=== PATIENT | female | born 1985 | race Caucasian/White ===

== ENCOUNTER 2017-10-03 12:58 | Emergency (ER) | payer OTHER ==
[~2017-10-03] VITALS: Ht 177.8 cm; Wt 127.0 kg
[~2017-10-03 12:58] MED LIST: FLEXERIL10 MG PO; HYDROXYZINE50 MG PO; JUNEL FE 1/20 21 TAB PO; NAPROXEN500 MG PO; TRIAMCINOL0.1 %/453 TOP; ZITHROMAX Z-PA250 MG PO
[2017-10-03 13:02] VITALS: BP 167/120
== END 2017-10-03 14:27 | disposition admitted as inpatient to this hospital (09) ==
LOC: ERH 12:58
DX: H57.12 Ocular pain, left eye (principal)

== ENCOUNTER 2017-11-03 19:46 | Emergency (ER) | payer OTHER ==
[~2017-11-03] VITALS: Ht 177.8 cm; Wt 127.0 kg
--- NOTE | 2017-11-03 20:49 | RADIOLOGY REPORT ---
EXAMINATION: XR CHEST CLINICAL INFORMATION: Productive cough. Fever. COMPARISON: None TECHNIQUE: 2 views of the chest were obtained. FINDINGS: No significant abnormality is noted involving the heart, lungs, mediastinum, bony thorax or soft tissues. IMPRESSION: Unremarkable examination.
--- NOTE | 2017-11-03 23:38 | ED INFLUENZA/URI COMPLAINT ---
History of Present Illness General Chief Complaint: Upper Respiratory Sx/Fever Stated Complaint: COUGH,VOMITING, SORE THROAT Source: patient Exam Limitations: no limitations Vital Signs & Intake/Output Vital Signs & Intake/Output Vital Signs Date Time Temp Pulse Resp B/P B/P Pulse O2 O2 Flow FiO2 Mean Ox Delivery Rate 11/04 0041 72 20 172/80 97 Room Air / 0018 98.1 11/04 0018 98.1 11/04 0017 98.1 86 20 167/96 96 Room Air 11/04 0014 96 Room Air / 0002 80 18 158/103 98 Room Air / 0000 76 170/122 11/03 2359 75 18 161/102 97 Room Air 11/03 2335 76 18 170/122 97 Room Air / 2309 98.9 87 20 158/92 97 Room Air 11/03 2029 101.5 11/03 2029 101.5 11/03 2029 110 177/133 11/03 2014 101.5 110 20 177/133 97 Room Air ED Intake and Output 11/04 0000 11/03 1200 Intake Total 120 Output Total Balance 120 Intake, Oral 120 Patient 280 lb Weight Weight Reported by Patient Measurement Method Allergies Coded Allergies: Penicillins (UNKNOWN 11/03/17) Reconcile Medications Azithromycin (Zithromax Z-Ok) 250 MG TAB 1 PAC PO DAILY INFECTION USE DIRECTED Benzonatate 100 MG CAPSULE 1-2 CAP PO Q4 COLD SYMPTOMS (Reported) Codeine Phosphate/Guaifenesi (Cheratussin AC Syrup) 10 MG-100 MG/5 ML LIQUID 10 ML PO Q6H PRN COUGH CYCLOBENZAPRINE HCL (Flexeril) 10 MG TAB 1 TAB PO TID PRN PAIN Doxycycline Hyclate 100 MG TABLET 1 TAB PO BID SINUSITIS Fluticasone Propionate (Flonase Allergy Relief) 50 MCG/ACTUATION SPRAY.SUSP 2 SPRAY NASB ONCE DAILY PRN CONGESTION Naproxen 500 MG TAB 1 TAB PO BID PAIN Norethindrone AC-Eth Estradiol (Loestrin 21 1.5-30 Tablet) 1.5 MG-30 MCG TABLET 1 TAB PO DAILY CONTROL (Reported) NORETHINDRONE-E.ESTRADIOL-IRON (Junel Fe 1 MG-20 Mcg Tablet) 1 MG-20 MCG (21)/75 MG (7) TABLET 1 TAB PO DAILY BC (Reported) Triage Note: 32F REPORTS SICK SINCE THURSDAY, WENT TO WALK IN AND DIAGNOSED VIRAL INFX BUT EVEN WORSE TODAY. REPORTS GENERALIZED ACHES, THROAT PAIN, N/V, DENIES FEVERS BUT TEMP 101.5 IN TRIAGE Triage Nurses Notes Reviewed? yes Onset: Abrupt Duration: day(s): (2-3), constant, continues in ED, getting worse Timing: single episode today Severity: mild, moderate Severity Numbers: 7 Prior Episodes/Possible Cause: no prior episodes No Modifying Factors: none Associated Symptoms: cough, headache, muscle aches, nasal congestion, nasal drainage, shortness of breath, sore throat LMP (ages 10-50): unknown : No Patient currently breastfeeds: No HPI: 32-year-old female with no past medical history presents for evaluation of cough , congestion, rhinorrhea fever and body aches. Patient states symptoms started several days ago beEN getting worse. Patient states cough is productive of yellow sputum worsened night causing difficulty sleeping. She was seen at an urgent care several days ago diagnosed with a viral infection but symptoms are getting worse. She spiked a fever today. She's been taking Tessalon Perles without improvement. No nausea vomiting diarrhea no chest pain or shortness of breath. No hemoptysis or lower extremity edema. (Berry Roberson) Past History Travel History Traveled to [place] past 21 day No Medical History Any Pertinent Medical History? see below for history Neurological: NONE EENT: NONE Cardiovascular: NONE Respiratory: NONE Gastrointestinal: NONE Hepatic: NONE Renal: NONE Musculoskeletal: NONE Psychiatric: NONE Endocrine: NONE Blood Disorders: NONE Cancer(s): NONE Tetanus Vaccine: 03/25/16 Surgical History Surgical History: non-contributory Psychosocial History What is your primary language Greenlandic Tobacco Use: Never used Family History Hx Contributory? No (Berry Roberson) Review of Systems Review of Systems Constitutional: Reports: chills, diaphoresis, fever. EENTM: Reports: nasal congestion, nasal pain. Respiratory: Reports: see HPI, cough, sputum production. Cardiovascular: Reports: no symptoms. GI: Reports: no symptoms. Genitourinary: Reports: no symptoms. Musculoskeletal: Reports: no symptoms. Skin: Reports: no symptoms. Neurological/Psychological: Reports: no symptoms. Hematologic/Endocrine: Reports: no symptoms. Immunologic/Allergic: Reports: no symptoms. All Other Systems: Reviewed and Negative (Black PA,Berry) Physical Exam Physical Exam General Appearance: well developed/nourished, no apparent distress, alert, awake Head: atraumatic, normal appearance Eyes: Bilateral: normal appearance, PERRL, EOMI. Ears, Nose, Throat: moist mucous membrane, hearing grossly normal, Tympanic normal, pharynx normal, nasal congestion, nasal drainage (CLEAR), MAXILLARY SINUS TENDERNESS PALPATION BILATERALLY Neck: normal inspection, supple, full range of motion Respiratory: normal breath sounds, chest non-tender, no respiratory distress, lungs clear Cardiovascular: regular rate/rhythm, normal peripheral pulses Peripheral Pulses: 2+ radial (R), 2+ radial (L) Gastrointestinal: normal bowel sounds, soft, non-tender, no organomegaly Back: normal inspection, normal range of motion, no vertebral tenderness Extremities: normal inspection, normal range of motion, no edema Neurologic/Psych: no motor/sensory deficits, awake, alert, oriented x 3, normal gait Skin: intact, normal color, warm/dry Lymphatic: no anterior cervical fatimah Core Measures Sepsis Present: No Sepsis Focused Exam Completed? No (Luis STARR,Berry) Progress Differential Diagnosis: influenza, otitis, pneumonia, pharyngitis, sinusitis, ACUTE BRONCHITIS Plan of Care: Orders Procedure Date/time Status TROPONIN LEVEL 11/04 2339 Complete D-DIMER 11/04 2339 Complete COMPREHENSIVE METABOLIC PANEL 11/04 2339 Complete CBC WITHOUT DIFFERENTIAL 11/04 2339 Complete EKG 11/04 2339 Active RAPID VIRAL INFLUENZA A 11/04 2011 Complete THROAT CULTURE W/QUICK STREP 11/04 2011 Active Laboratory Tests 11/03/17 2347: Anion Gap 11, Estimated GFR > 60, BUN/Creatinine Ratio 17.5, Glucose 99, Calcium 8.9, Total Bilirubin 0.4, AST 40 H, ALT 55 H, Alkaline Phosphatase 131 H, Troponin I < 0.01, Total Protein 8.0, Albumin 4.0, Globulin 4.0, Albumin/ Globulin Ratio 1.0 L, D-Dimer High Sensitivty 235, CBC w Diff NO MAN DIFF REQ, RBC 4.74, MCV 88.3, MCH 28.6, MCHC 32.4 L, RDW 14.9 H, MPV 8.9, Gran % 53.1, Lymphocytes % 38.2, Monocytes % 7.3, Eosinophils % 0.8, Basophils % 0.6, Absolute Granulocytes 3.6, Absolute Lymphocytes 2.6, Absolute Monocytes 0.5, Absolute Eosinophils 0.1, Absolute Basophils 0 11/03/17 3160: Urine Color Cancelled, Urine Clarity Cancelled, Urine pH Cancelled, Ur Specific Sheldon Cancelled, Urine Protein Cancelled, Urine Ketones Cancelled, Urine Nitrite Cancelled, Urine Bilirubin Cancelled, Urine Urobilinogen Cancelled, Ur Leukocyte Esterase Cancelled, Ur Microscopic Cancelled, Urine Hemoglobin Cancelled, Urine Glucose Cancelled Microbiology 11/03 2016 NASOPHARYN: Influenza Virus A & B Rapid Smear - COMP Patient seen and evaluated. She currently was febrile to 101. She has maxillary sinus tenderness bilaterally. Lungs are clear to auscultation. All blood work is within normal limits. Negative d-dimer negative troponin. Patient will be treated for possible sinusitis with doxycycline Flonase Tylenol and ibuprofen. Also codeine cough suppressant. Follow-up with primary care doctor. On reevaluation patient is now afebrile. She appears clinically well she agrees the plan. Diagnostic Imaging: Viewed by Me: Radiology Read. Discussed w/RAD: Radiology Read. Radiology Impression: PATIENT: LIBERTAD MIDDLETON PRESENT AGE: 32 PATIENT ACCOUNT NO: [id number] : 84 LOCATION: [facility] ORDERING PHYSICIAN: Juan Carlos Cm DO (TBS) SERVICE DATE: 11/03/17 EXAM TYPE: RAD - XRY-CHEST XRAY, TWO VIEWS EXAMINATION: XR CHEST CLINICAL INFORMATION : Productive cough. Fever. COMPARISON: None TECHNIQUE: 2 views of the chest were obtained. FINDINGS: No significant abnormality is noted involving the heart, lungs, mediastinum, bony thorax or soft tissues. IMPRESSION: Unremarkable examination. DICTATED BY: Mac Jackson MD DATE/TIME DICTATED:11/03/172044 CLIENT ADVOCATE:ANABELLA DATE/TIME TRANSCRIBED:11/03/172044 CONFIDENTIAL, DO NOT COPY WITHOUT APPROPRIATE AUTHORIZATION. <Electronically signed in Other Vendor System> SIGNED BY: Mac Jackson MD 11/03/172048 Initial ED EKG: normal sinus rhythm, borderline prolonged qt (Berry Roberson) Departure Departure Disposition: HOME OR SELF CARE Condition: Stable Clinical Impression Primary Impression: Sinusitis Qualifiers: Sinusitis location: maxillary Chronicity: acute Recurrence: non- recurrent Qualified Code: J01.00 - Acute maxillary sinusitis, unspecified Referrals: Egnike BOND TRADER,Kym (PCP/Family) Additional Instructions: Rest and drink plenty of fluids. Tylenol/IBUPROFEN as needed for pain and fevers. Take antibiotics as directed for the full course. Robitussin-AC as needed for cough at nighttime. This may cause drowsiness. Flonase for congestion. Apply warm compresses to your sinuses. HEENT see a primary care doctor regarding her blood pressure. Monitor symptoms closely if you have worsening cough, shortness of breath, chest pain, persistent high fever or any other concerns to return immediately. Departure Forms: Customer Survey General Discharge Information Prescriptions: Current Visit Scripts Doxycycline Hyclate 1 TAB PO BID #14 TAB Codeine Phosphate/Guaifenesi (Cheratussin AC Syrup) 10 ML PO Q6H PRN COUGH #240 ML Fluticasone Propionate (Flonase Allergy Relief) 2 SPRAY NASB ONCE DAILY PRN CONGESTION #1 BOT (Berry Roberson) PA/DRY DIP WORKER Co-Sign Statement Statement: ED Attending supervision documentation- [] I saw and evaluated the patient. I have also reviewed all the pertinent lab results and diagnostic results. I agree with the findings and the plan of care as documented in the PA's/DRY DIP WORKER's documentation. [x] I have reviewed the ED Record and agree with the PA's/DRY DIP WORKER's documentation. [] Additions or exceptions (if any) to the PAs/DRY DIP WORKER's note and plan are summarized below: [] (Melissa MOJICA,Burt Odell)
[2017-11-03 23:58] LABS: ABSOLUTE BASOPHIL COUNT 0 /CUMM (0.0-0.2); ABSOLUTE EOSINOPHIL COUNT 0.1 /CUMM (0.0-0.7); ABSOLUTE GRANULOCYTE CT 3.6 /CUMM (1.4-6.5); ABSOLUTE LYMPH COUNT 2.6 /CUMM (1.2-3.4); ABSOLUTE MONOCYTE COUNT 0.5 /CUMM (0.10-0.60); BASOPHIL % 0.6 % (0.0-2.0); EOSINOPHIL % 0.8 % (0-5); GRANULOCYTE % 53.1 % (42.2-75.2); HEMATOCRIT 41.8 % (37-47); MEAN CORPUSCULAR HGB 28.6 PG (27.0-31.0); MEAN CORPUSCULAR HGB CONC 32.4 G/DL (33.0-37.0); MEAN CORPUSCULAR VOLUME 88.3 FL (81.0-99.0); MEAN PLATELET VOLUME 8.9 FL (7.4-10.4); PLATELET COUNT 198 /CUMM (130-400); RBC DISTRIBUTION WIDTH 14.9 % (11.5-14.5); RED BLOOD CELL CT 4.74 /CUMM (4.20-5.40); WHITE BLOOD CELL COUNT 6.8 /CUMM (4.8-10.8)
[2017-11-04] MEDS ORDERED: BENZONATATE100 M1 PO (00:12)
[2017-11-04] MEDS ORDERED: LOESTRIN 21 1.1 EACH PO (00:12)
[2017-11-04 00:41] VITALS: BP 172/80
[2017-11-04] MEDS ORDERED: DOXYCYCLINE HY100 M4 PO (00:44)
[2017-11-04] MEDS ORDERED: CHERATUSSIN AC118 M1 PO (00:44)
[2017-11-04] MEDS ORDERED: FLONASE ALLERG9.9 ML NASB (00:46)
== END 2017-11-04 00:53 ==
LOC: ERH 19:46
PROVIDERS: Physician Assistant Medical
DX: J32.9 Chronic sinusitis, unspecified (principal); R05 Cough; R50.9 Fever, unspecified; R51 Headache
CPT/HCPCS: 71046; 87804; 87804-59; 93005; 93010; 96374